=== PATIENT | male | born 1945 | race Caucasian/White ===

== ENCOUNTER 2019-01-18 11:09 | Emergency (ER) | payer BC ==
[~2019-01-18] VITALS: Ht 177.8 cm; Wt 90.9 kg
[2019-01-18 11:30] VITALS: TEMP 98.8
[2019-01-18] MEDS ORDERED: NORVASC 5MG5 MG/TAB PO (11:37)
[2019-01-18] MEDS ORDERED: LIPITOR 80MG80 MG PO (11:38)
[2019-01-18] MEDS ORDERED: PREDNISONE20 MG PO (11:38)
[2019-01-18 12:22] LABS: HEMATOCRIT 44.3 % (42.0-52.0); HEMOGLOBIN 14.9 g/dl (13.5-18.0); MEAN CELL VOLUME 92 fl (80.0-100.0); MEAN CORPUSCULAR HEMOGLOBIN 31 pg (27.0-31.0); MEAN CORPUSCULAR HGB CONC 34 g/dl (33.0-37.0); MEAN PLATELET VOLUME 9.7 fl (7.4-10.4); PLATELET COUNT 203 K/mm3 (130-400); REDCELL DISTRIBUTION WIDTH-CV 13.2 % (11.5-14.5)
[2019-01-18 12:40] LABS: ALBUMIN 3.7 gm/dL (3.5-5.0); BILIRUBIN,TOTAL 1.4 mg/dL (0.0-1.0); C-REACTIVE PROTEIN 7.5 mg/dL (0.0-0.9); CALCIUM 8.5 mg/dL (8.4-10.2); CREATININE, serum 1.23 (0.66-1.25); POTASSIUM 3.8 mmol/L (3.4-5.0); TOTAL PROTEIN 6.8 gm/dL (6.4-8.2)
[2019-01-18 13:02] LABS: EOSINOPHIL 1 % (0-4); LYMPHOCYTE 10 % (20.0-51.0); NEUTROPHILS 73 % (42.0-75.2); PLATELET ESTIMATE NORMAL (NORMAL)
[2019-01-18 14:01] VITALS: BP 152/81; PULSE 82
[2019-01-21] MEDS ORDERED: BACTRIM DS 8001 TAB PO (22:53)
[2019-01-21] MEDS ORDERED: CEPHALEXIN500 M1 PO (22:53)
== END 2019-01-18 14:01 | disposition home or self-care (01) ==
LOC: COL.ER 11:09
PROVIDERS: Family Medicine
DX: L23.9 Allergic contact dermatitis, unspecified cause (principal); I10 Essential (primary) hypertension; E78.5 Hyperlipidemia, unspecified
CPT/HCPCS: J0171; J1100

== ENCOUNTER 2024-03-29 08:37 | Emergency (ER) | payer BC ==
[~2024-03-29] VITALS: Ht 177.8 cm; Wt 90.9 kg
[~2024-03-29 08:37] MED LIST: BACTRIM DS 8001 TAB PO; CEPHALEXIN500 M1 PO; LIPITOR 80MG80 MG PO; NORVASC 5MG5 MG/TAB PO; PREDNISONE20 MG PO
[2024-03-29 08:57] LABS: BASO % 0.4 % (0.0-2.0); EOS # 0.3 K/mm3 (0.0-0.7); GRAN % 57.9 % (42.2-75.2); HEMATOCRIT 41.4 % (42.0-52.0); HEMOGLOBIN 13.8 g/dl (13.5-18.0); LYMPH # 1.3 K/mm3 (1.2-3.4); MEAN CELL VOLUME 93 fl (80.0-100.0); MEAN CORPUSCULAR HEMOGLOBIN 31 pg (27-31); MEAN CORPUSCULAR HGB CONC 33 g/dl (33.0-37.0); MEAN PLATELET VOLUME 9.2 fl (7.4-10.4); MONO # 0.6 K/mm3 (0.1-0.6); MONO % 11.3 % (1.7-9.3); PLATELET COUNT 193 K/mm3 (130-400); RED BLOOD COUNT 4.46 M/mm3 (4.20-5.60); REDCELL DISTRIBUTION WIDTH-CV 12.6 % (11.5-14.5)
[2024-03-29] MEDS ORDERED: LORazepam 2 MG/ML 1 ML VIAL IV ONE (09:00)
[2024-03-29] MEDS ORDERED: Ketorolac 15 MG/ML VIAL IV ONE (09:00)
[2024-03-29 09:17] LABS: ALBUMIN 3.8 g/dL (3.4-4.8); BILIRUBIN,TOTAL 0.5 mg/dL (0.2-1.2); CALCIUM 9.8 mg/dL (8.4-10.2); CREATININE, serum 0.98 mg/dL (0.72-1.25); POTASSIUM 4.4 mEq/L (3.5-4.5); TOTAL PROTEIN 6.9 g/dl (6.2-8.1)
[2024-03-29 09:23] LABS: TROPONIN-I 0.017 ng/mL (0.00-0.033)
[2024-03-29] MEDS ORDERED: FLEXERIL 1010 MG/TAB PO (10:25)
[2024-03-29] MEDS ORDERED: PREDNISONE50 MG PO (10:25)
[2024-03-29 10:31] VITALS: BP 171/94; PULSE 66
== END 2024-03-29 10:31 | disposition home or self-care (01) ==
LOC: COL.ER 08:37
PROVIDERS: Emergency Medicine
DX: M54.9 Dorsalgia, unspecified (principal)
CPT/HCPCS: J1885; J2060